=== PATIENT | female | born 1955 | race Two or more races ===

== ENCOUNTER 2023-07-26 14:28 | Inpatient (IN) | payer OTHER ==
[~2023-07-26] VITALS: Ht 157.5 cm; Wt 100.7 kg
[2023-07-26 15:29] LABS: Alanine Aminotransferase 262 U/L (7-40); Albumin 4.6 g/dL (3.2-4.8); Alkaline Phosphatase 53 U/L (46-116); Anion Gap 8 (5-15); Aspartate Aminotransferase 260 U/L (13-40); BUN/Creatinine Ratio 19.6 (10.0-20.0); Blood Urea Nitrogen 20 mg/dL (9-23); Calcium 9.4 mg/dL (8.7-10.4); Carbon Dioxide 22 mmol/L (20-30); Chloride 106 mmol/L (98-107); Glucose 112 mg/dL (74-106); Magnesium 2.1 mg/dL (1.6-2.6); Sodium 136 mmol/L (136-145)
[2023-07-26 15:30] LABS: Bilirubin, Total 0.9 mg/dL (0.2-1.0); Total Protein 7.6 g/dL (5.7-8.2)
[2023-07-26 15:40] LABS: INR 1.41 (0.9-1.15); Partial Thromboplastin Time 31.5 SEC (24.5-34.5); Prothrombin Time 14.5 sec (9.3-11.8)
[2023-07-26 16:02] LABS: Urine Bacteria FEW /hpf (None Seen); Urine Blood Negative /uL (Negative); Urine Clarity HAZY (Clear); Urine Color Yellow (Yellow); Urine Hyaline Cast MANY /lpf (0 - 2); Urine Mucus FEW (None Seen); Urine Protein, UAD 1+ (Negative); Urine Specific Gravity 1.018 (1.001-1.035); Urine WBC 49 /hpf (0 - 5)
[2023-07-26 16:50] VITALS: PULSE 123; RESP 22; O2SAT 98
[2023-07-26 16:51] LABS: Basophils # (auto) 0 10 ^3/uL (0-0.2); Basophils % (auto) 0.4 % (0.0-2.0); Eosinophils # (auto) 0.1 10 ^3/uL (0-0.8); Eosinophils % (auto) 0.5 % (0.0-7.0); Hematocrit 43.7 % (36.0-46.0); Hemoglobin 14.3 g/dL (12.2-16.2); Lymphocytes # (auto) 1.6 10 ^3/uL (0.4-5.4); Lymphocytes % (auto) 15.7 % (10.0-50.0); Mean Corpuscular Hemoglobin 30.2 pg (28.0-32.0); Mean Corpuscular Hgb Conc. 32.8 g/dL (32.0-36.0); Mean Corpuscular Volume 91.9 fL (80.0-100.0); Monocytes # (auto) 0.9 10 ^3/uL (0-1.3); Neutrophils # (auto) 7.4 10 ^3/uL (1.6-8.6); Neutrophils % (auto) 74.4 % (37.0-80.0); Nucleated Red Blood Cells % 0.2 %; Red Blood Cells 4.75 10^6/uL (4.0-5.20); Red Cell Distribution Width 18.2 % (11.8-14.3); White Blood Cell 9.9 10^3/uL (4.4-10.8)
[2023-07-26] MEDS: SODIUM CHLORIDE 0.9% 1,000 ML IV ONE (17:50)
[2023-07-26] MEDS: FUROSEMIDE 40 MG/4 ML VIAL IV ONE (19:20)
[2023-07-26 19:30] VITALS: PULSE 121; RESP 22; O2SAT 95
[2023-07-26] MEDS: dilTIAZem 25 MG/5 ML VIAL IV ONE (19:34)
[2023-07-26] MEDS: ALBUTEROL SULF 2.5 MG/0.5ML(0.5%) NEB SOLN NEB ONE (20:02)
[2023-07-26] MEDS: IPRATROPIUM BROM 0.5 MG/2.5ML INH SOL NEB ONE (20:02)
[2023-07-26] MEDS: DexAMETHasone SOD PHOS 10MG/1ML VIAL INJ IV ONE (20:40)
[2023-07-26] MEDS: IOHEXOL 350 MG/ML 100ML IJ ONE ×2 (21:11)
[2023-07-26] MEDS: cefTRIAXone 2GM/50ML D5W 50 ML IV ONE (21:38)
[2023-07-26] MEDS ORDERED: HYDROcodone-ACET 5/325MG TAB PO PRN (22:30)
[2023-07-26] MEDS ORDERED: ACETAMINOPHEN 650 mg PER 20.3 mL UD PO PRN (22:30)
[2023-07-26] MEDS ORDERED: NITROGLYCERIN 0.4 MG SL TAB SL PRN ×2 (22:30)
[2023-07-26] MEDS ORDERED: MORPHINE SULFATE INJ 2 MG/ml SYRG IV PRN ×2 (22:30)
[2023-07-26 23:04] VITALS: BP 116/96; PULSE 117; RESP 20; TEMP 98.2; O2SAT 95
[2023-07-26 23:10] VITALS: O2SAT 96
[2023-07-27] VITALS (8 sets, daily range): PULSE 85–118; RESP 20–24; O2SAT 96–99
[2023-07-27] MEDS: ALBUTEROL SULF 2.5 MG/0.5ML(0.5%) NEB SOLN NEB PRN (00:42)
[2023-07-27] MEDS: IPRATROPIUM BROM 0.5 MG/2.5ML INH SOL NEB PRN (00:43)
[2023-07-27] MEDS ORDERED: DEXTROSE (50%) 50ML SYRG IV PRN (01:15)
[2023-07-27] MEDS: NOREPINEPHRINE 8 MG/250ML KIT 250 ML IV SCH (01:15)
[2023-07-27] MEDS: SODIUM CHLORIDE 0.9% 1,000 ML IV ONE (01:47)
[2023-07-27 05:44] LABS: Basophils # (auto) 0 10 ^3/uL (0-0.2); Basophils % (auto) 0.1 % (0.0-2.0); Eosinophils # (auto) 0 10 ^3/uL (0-0.8); Hematocrit 40.7 % (36.0-46.0); Hemoglobin 13.4 g/dL (12.2-16.2); Lymphocytes # (auto) 0.8 10 ^3/uL (0.4-5.4); Lymphocytes % (auto) 10.8 % (10.0-50.0); Mean Corpuscular Hemoglobin 30.1 pg (28.0-32.0); Mean Corpuscular Hgb Conc. 32.8 g/dL (32.0-36.0); Mean Corpuscular Volume 91.7 fL (80.0-100.0); Monocytes # (auto) 0.2 10 ^3/uL (0-1.3); Neutrophils # (auto) 6.5 10 ^3/uL (1.6-8.6); Neutrophils % (auto) 87.1 % (37.0-80.0); Nucleated Red Blood Cells % 0.1 %; Red Blood Cells 4.44 10^6/uL (4.0-5.20); Red Cell Distribution Width 17.9 % (11.8-14.3); White Blood Cell 7.5 10^3/uL (4.4-10.8)
[2023-07-27 06:06] LABS: Anion Gap 11 (5-15); Carbon Dioxide 20 mmol/L (20-30); Chloride 106 mmol/L (98-107); Potassium 4.4 mmol/L (3.5-5.1); Sodium 137 mmol/L (136-145)
[2023-07-27 06:07] LABS: Calcium 8.4 mg/dL (8.7-10.4)
[2023-07-27 06:12] LABS: BUN/Creatinine Ratio 26.5 (10.0-20.0); Blood Urea Nitrogen 27 mg/dL (9-23); Glucose 147 mg/dL (74-106)
[2023-07-27] MEDS: InsuLIN REG 1unit/0.01ml Soln (100units/ml) SC SCH (07:00)
[2023-07-27] MEDS: ACCU-CHEK COMFORT CURVE STRIP VI SCH (07:25)
[2023-07-27] MEDS: PANTOPRAZOLE 40 MG/10 ML VIAL INJ IV SCH (10:14)
[2023-07-27] MEDS: AMIODARONE HCL 200 MG TAB PO SCH (10:15)
[2023-07-27] MEDS: FUROSEMIDE 20 MG/2 ML VIAL IV SCH ×2 (10:15→13:56)
[2023-07-27] MEDS: APIXABAN 5 MG TAB PO SCH (10:15)
[2023-07-27 13:43] LABS: COVID19 ANTIGEN SOFIA FIA NEGATIVE (NEGATIVE); Rapid Influenza A Negative (Negative); Rapid Influenza B Negative (Negative)
[2023-07-27] MEDS: AMIODARONE BOLUS KIT 100 ML IV ONE (13:43)
[2023-07-27] MEDS: DIGOXIN (250MCG/ML) 2 ML AMPULE IV ONE (13:43)
[2023-07-27] MEDS: AMIODARONE 450mg/250ml AE 250 ML IV SCH ×2 (13:56→20:20)
[2023-07-27] MEDS: methylPREDNISolone SOD SUCC 40 MG/ML VL IV SCH (14:25)
[2023-07-27] MEDS: IPRATROPIUM BROM 0.5 MG/2.5ML INH SOL NEB SCH (15:22)
[2023-07-27] MEDS: LEVALBUTEROL HCL 1.25 MG/3 ML NEB NEB SCH (15:23)
[2023-07-27] MEDS: LEVALBUTEROL HCL 1.25 MG/3 ML NEB ONE (15:23)
[2023-07-27] MEDS: cefTRIAXone 1GM/50ML D5W 50 ML IV SCH (21:33)
[2023-07-28 05:31] LABS: Basophils # (auto) 0 10 ^3/uL (0-0.2); Basophils % (auto) 0.1 % (0.0-2.0); Eosinophils # (auto) 0 10 ^3/uL (0-0.8); Hematocrit 37.8 % (36.0-46.0); Hemoglobin 12.4 g/dL (12.2-16.2); Lymphocytes # (auto) 1.1 10 ^3/uL (0.4-5.4); Lymphocytes % (auto) 8.4 % (10.0-50.0); Mean Corpuscular Hemoglobin 30.2 pg (28.0-32.0); Mean Corpuscular Hgb Conc. 32.8 g/dL (32.0-36.0); Mean Corpuscular Volume 91.9 fL (80.0-100.0); Monocytes # (auto) 0.9 10 ^3/uL (0-1.3); Monocytes % (auto) 7.3 % (0.0-12.0); Neutrophils # (auto) 10.6 10 ^3/uL (1.6-8.6); Neutrophils % (auto) 84.2 % (37.0-80.0); Nucleated Red Blood Cells % 0.2 %; Red Blood Cells 4.11 10^6/uL (4.0-5.20); Red Cell Distribution Width 18.3 % (11.8-14.3); White Blood Cell 12.6 10^3/uL (4.4-10.8)
[2023-07-28 05:46] LABS: Chloride 103 mmol/L (98-107); Potassium 3.8 mmol/L (3.5-5.1); Sodium 133 mmol/L (136-145)
[2023-07-28 05:47] LABS: Anion Gap 10 (5-15); Carbon Dioxide 20 mmol/L (20-30)
[2023-07-28 05:48] LABS: Calcium 9.2 mg/dL (8.7-10.4)
[2023-07-28 05:52] LABS: BUN/Creatinine Ratio 18.4 (10.0-20.0); Blood Urea Nitrogen 19 mg/dL (9-23); Glucose 106 mg/dL (74-106)
[2023-07-28] MEDS: LEVALBUTEROL HCL 1.25 MG/3 ML NEB NEB PRN (06:54)
[2023-07-28 06:55] VITALS: PULSE 121; RESP 22; O2SAT 95
[2023-07-28] MEDS: IPRATROPIUM BROM 0.5 MG/2.5ML INH SOL NEB PRN (06:55)
[2023-07-28 07:01] VITALS: PULSE 121; RESP 20; O2SAT 97
[2023-07-28 07:32] VITALS: PULSE 107; RESP 18; O2SAT 96
[2023-07-28] MEDS: DIGOXIN (250MCG/ML) 2 ML AMPULE IV ONE (13:01)
[2023-07-28] MEDS: MIDODRINE HCL 10 MG TAB PO ONE (19:05)
[2023-07-28 20:43] VITALS: PULSE 102; RESP 21; O2SAT 98
[2023-07-28] MEDS: MONTELUKAST SODIUM 10 MG TAB PO SCH (21:50)
[2023-07-28] MEDS: traZODone HCL 50 MG TAB PO SCH (21:54)
[2023-07-29] VITALS (11 sets, daily range): BP systolic 108; BP diastolic 36–63; PULSE 60–105; RESP 16–22; TEMP 97.1–97.3; O2SAT 96–100
[2023-07-29 05:26] LABS: Basophils # (auto) 0 10 ^3/uL (0-0.2); Basophils % (auto) 0.1 % (0.0-2.0); Eosinophils # (auto) 0 10 ^3/uL (0-0.8); Hematocrit 38.5 % (36.0-46.0); Hemoglobin 12.4 g/dL (12.2-16.2); Lymphocytes # (auto) 1.2 10 ^3/uL (0.4-5.4); Lymphocytes % (auto) 8.9 % (10.0-50.0); Mean Corpuscular Hemoglobin 29.5 pg (28.0-32.0); Mean Corpuscular Hgb Conc. 32.3 g/dL (32.0-36.0); Mean Corpuscular Volume 91.5 fL (80.0-100.0); Monocytes # (auto) 0.7 10 ^3/uL (0-1.3); Monocytes % (auto) 5.3 % (0.0-12.0); Neutrophils # (auto) 11.3 10 ^3/uL (1.6-8.6); Neutrophils % (auto) 85.7 % (37.0-80.0); Nucleated Red Blood Cells % 0.2 %; Red Blood Cells 4.21 10^6/uL (4.0-5.20); Red Cell Distribution Width 18.6 % (11.8-14.3); White Blood Cell 13.1 10^3/uL (4.4-10.8)
[2023-07-29 05:35] LABS: Chloride 106 mmol/L (98-107); Potassium 4.6 mmol/L (3.5-5.1); Sodium 135 mmol/L (136-145)
[2023-07-29 05:36] LABS: Anion Gap 9 (5-15); Calcium 9.4 mg/dL (8.7-10.4); Carbon Dioxide 20 mmol/L (20-30)
[2023-07-29 05:41] LABS: Blood Urea Nitrogen 25 mg/dL (9-23); Glucose 126 mg/dL (74-106)
[2023-07-29 05:47] LABS: Alanine Aminotransferase 199 U/L (7-40); Alkaline Phosphatase 43 U/L (46-116); Anion Gap 11 (5-15); Aspartate Aminotransferase 102 U/L (13-40); BUN/Creatinine Ratio 19.8 (10.0-20.0); Blood Urea Nitrogen 20 mg/dL (9-23); Calcium 9.5 mg/dL (8.7-10.4); Carbon Dioxide 20 mmol/L (20-30); Chloride 105 mmol/L (98-107); Glucose 126 mg/dL (74-106); Lipase 37 U/L (12-53); Potassium 4.5 mmol/L (3.5-5.1); Sodium 136 mmol/L (136-145)
[2023-07-29 05:48] LABS: Bilirubin, Total 0.6 mg/dL (0.2-1.0); Total Protein 6.6 g/dL (5.7-8.2)
[2023-07-29] MEDS: AMIODARONE HCL 200 MG TAB PO ONE (09:44)
[2023-07-29] MEDS: MIDODRINE HCL 10 MG TAB PO SCH (10:35)
[2023-07-29] MEDS: HYALURONIDASE 150 UNIT/1 ML SUBCUT ONE (10:41)
[2023-07-29] MEDS ORDERED: IPRATROPIUM BROM 0.5 MG/2.5ML INH SOL NEB PRN (16:00)
[2023-07-29] MEDS: LEVALBUTEROL HCL 1.25 MG/3 ML NEB NEB PRN (16:27)
[2023-07-29] MEDS ORDERED: IPRATROPIUM BROM 0.5 MG/2.5ML INH SOL NEB SCH (18:00)
[2023-07-29] MEDS ORDERED: LEVALBUTEROL HCL 1.25 MG/3 ML NEB NEB SCH (18:00)
[2023-07-29] MEDS: dilTIAZem 120MG ER CAP PO ONE (18:03)
[2023-07-29] MEDS: DIGOXIN (250MCG/ML) 2 ML AMPULE IV ONE (18:55)
[2023-07-29] MEDS: BUDESONIDE (INHALATION) 0.5 MG/2 ML NEB NEB SCH (19:46)
[2023-07-29] MEDS: LEVALBUTEROL HCL 1.25 MG/3 ML NEB NEB SCH (19:46)
[2023-07-29] MEDS: IPRATROPIUM BROM 0.5 MG/2.5ML INH SOL NEB SCH (19:46)
[2023-07-29] MEDS: methylPREDNISolone SOD SUCC 125 MG/2 ML VL IV SCH (21:00)
[2023-07-29] MEDS: AMIODARONE HCL 200 MG TAB PO SCH (22:48)
[2023-07-30] VITALS (20 sets, daily range): BP systolic 100–130; BP diastolic 51–88; PULSE 58–82; RESP 18–24; TEMP 95.9–98.1; O2SAT 94–100
[2023-07-30] MEDS: ALPRAZolam 0.25 MG TAB PO SCH (05:09)
[2023-07-30 05:57] LABS: Basophils # (auto) 0 10 ^3/uL (0-0.2); Basophils % (auto) 0.1 % (0.0-2.0); Eosinophils # (auto) 0 10 ^3/uL (0-0.8); Hemoglobin 12.4 g/dL (12.2-16.2); Lymphocytes # (auto) 0.7 10 ^3/uL (0.4-5.4); Lymphocytes % (auto) 6.3 % (10.0-50.0); Mean Corpuscular Hemoglobin 30.5 pg (28.0-32.0); Mean Corpuscular Hgb Conc. 33.5 g/dL (32.0-36.0); Mean Corpuscular Volume 90.9 fL (80.0-100.0); Monocytes # (auto) 0.6 10 ^3/uL (0-1.3); Monocytes % (auto) 4.8 % (0.0-12.0); Neutrophils # (auto) 10.4 10 ^3/uL (1.6-8.6); Neutrophils % (auto) 88.8 % (37.0-80.0); Nucleated Red Blood Cells % 0.1 %; Red Blood Cells 4.07 10^6/uL (4.0-5.20); Red Cell Distribution Width 17.9 % (11.8-14.3); White Blood Cell 11.7 10^3/uL (4.4-10.8)
[2023-07-30 06:03] LABS: Chloride 102 mmol/L (98-107); Potassium 4.3 mmol/L (3.5-5.1); Sodium 134 mmol/L (136-145)
[2023-07-30 06:04] LABS: Anion Gap 8 (5-15); Calcium 9.5 mg/dL (8.7-10.4); Carbon Dioxide 24 mmol/L (20-30)
[2023-07-30 06:09] LABS: Blood Urea Nitrogen 23 mg/dL (9-23); Glucose 117 mg/dL (74-106)
[2023-07-30] MEDS ORDERED: CARV6.25 PO (07:00)
[2023-07-30] MEDS ORDERED: AMIO200T33 PO (07:00)
[2023-07-30] MEDS ORDERED: LEVA0.3110 IN (07:00)
[2023-07-30] MEDS ORDERED: LEVA0.3113 IN (07:00)
[2023-07-30] MEDS ORDERED: APIX5TAB PO (07:00)
[2023-07-30] MEDS ORDERED: LISI10TA34 PO (07:00)
[2023-07-30] MEDS ORDERED: DUPI1INJ SC (07:00)
[2023-07-30] MEDS ORDERED: MONT-8 PO (07:00)
[2023-07-30] MEDS ORDERED: AMIT10TA12 PO (07:00)
[2023-07-30] MEDS: dilTIAZem 120MG ER CAP PO SCH (09:11)
[2023-07-30] MEDS: PANTOPRAZOLE 40 MG TAB PO SCH (09:38)
[2023-07-30] MEDS ORDERED: VALA1TAB34 PO (17:41)
[2023-07-30] MEDS ORDERED: FURO20TA3 PO (17:41)
[2023-07-30] MEDS ORDERED: HYDR200T36 PO (17:41)
[2023-07-30] MEDS ORDERED: SACU1TAB PO (17:41)
[2023-07-30] MEDS ORDERED: DILT60TA PO (17:41)
[2023-07-30] MEDS ORDERED: LEVA0.6320 INH (17:42)
[2023-07-31] VITALS (9 sets, daily range): BP systolic 91–109; BP diastolic 54–59; PULSE 61–71; RESP 20; TEMP 96.2–97.8; O2SAT 94–98
[2023-07-31 05:48] LABS: Basophils # (auto) 0 10 ^3/uL (0-0.2); Basophils % (auto) 0.1 % (0.0-2.0); Eosinophils # (auto) 0 10 ^3/uL (0-0.8); Hematocrit 38.8 % (36.0-46.0); Hemoglobin 12.7 g/dL (12.2-16.2); Lymphocytes # (auto) 0.6 10 ^3/uL (0.4-5.4); Lymphocytes % (auto) 5.6 % (10.0-50.0); Mean Corpuscular Hemoglobin 30.2 pg (28.0-32.0); Mean Corpuscular Hgb Conc. 32.9 g/dL (32.0-36.0); Monocytes # (auto) 0.6 10 ^3/uL (0-1.3); Monocytes % (auto) 5.3 % (0.0-12.0); Neutrophils # (auto) 9.3 10 ^3/uL (1.6-8.6); Nucleated Red Blood Cells % 0.1 %; Red Blood Cells 4.21 10^6/uL (4.0-5.20); Red Cell Distribution Width 18.8 % (11.8-14.3); White Blood Cell 10.4 10^3/uL (4.4-10.8)
[2023-07-31 05:58] LABS: Chloride 103 mmol/L (98-107); Potassium 4.6 mmol/L (3.5-5.1); Sodium 137 mmol/L (136-145)
[2023-07-31 05:59] LABS: Anion Gap 9 (5-15); Calcium 9.7 mg/dL (8.7-10.4); Carbon Dioxide 25 mmol/L (20-30)
[2023-07-31 06:04] LABS: BUN/Creatinine Ratio 18.3 (10.0-20.0); Blood Urea Nitrogen 20 mg/dL (9-23); Glucose 141 mg/dL (74-106)
[2023-07-31] MEDS ORDERED: AMOX500T86 PO (10:40)
[2023-07-31] MEDS ORDERED: BUDE0.5S IN (10:40)
[2023-07-31] MEDS ORDERED: IPRA0.00 IN (10:48)
== END 2023-07-31 12:00 | disposition home or self-care (01) | DRG 291 ==
LOC: ER 14:28 → TELE 22:37 → TELE-EAST 23:48 → TELE 23:51 → TELE-WESTW 07-29 15:28
PROVIDERS: ADMIT Nurse Practitioner Family; ATTEND Nurse Practitioner Family
DX: I11.0 Hypertensive heart disease with heart failure (principal); I50.23 Acute on chronic systolic (congestive) heart failure; J96.01 Acute respiratory failure with hypoxia; I48.92 Unspecified atrial flutter; J98.11 Atelectasis; J44.1 Chronic obstructive pulmonary disease with (acute) exacerbation; Z68.41 Body mass index [BMI] 40.0-44.9, adult; N39.0 Urinary tract infection, site not specified; I42.9 Cardiomyopathy, unspecified; I48.0 Paroxysmal atrial fibrillation; Z20.822 Contact with and (suspected) exposure to COVID-19; F41.9 Anxiety disorder, unspecified; R91.1 Solitary pulmonary nodule; I95.9 Hypotension, unspecified; E78.5 Hyperlipidemia, unspecified; I48.91 Unspecified atrial fibrillation; E11.9 Type 2 diabetes mellitus without complications; E66.01 Morbid (severe) obesity due to excess calories; I25.10 Atherosclerotic heart disease of native coronary artery without angina pectoris; Z79.01 Long term (current) use of anticoagulants; Z87.891 Personal history of nicotine dependence
CPT/HCPCS: 36415; 71045; 71275; 76705; 80048; 80053; 80162; 81001; 82962; 83690; 83735; 83880; 84484; 85025; 85379; 85610; 85730; 87086; 87426; 87804; 93005; 93306; 94640; 96365; 96375; 97110; 97163; 97530; C9113; G0378; J1100; J3470

== ENCOUNTER 2024-02-19 06:30 | Day surgery (SDC) | payer OTHER ==
[~2024-02-19] VITALS: Ht 157.5 cm; Wt 86.6 kg
[2024-02-19] VITALS (7 sets, daily range): BP systolic 93–105; BP diastolic 43–55; PULSE 74–83; RESP 12–17; O2SAT 99–100
[~2024-02-19 06:30] MED LIST: AMIT10TA12 PO; APIX5TAB PO; ATOR20TA50 PO; CARV6.2517 PO; CETI-195 PO; DUPI1INJ SC; FLUT1AER11 IN; FURO20TA3 PO; GLUC1CAP12 PO; HYDR-4902 PO; LEVA0.6320 INH; MONT-8 PO; MULT-1018 PO; SACU1TAB PO; [UNRECOGNIZED DRUG - CODE] PO
[2024-02-19] MEDS ORDERED: IODIXANOL 320MG/ML 100ML BTL IV ONE ×2 (07:27→08:11)
[2024-02-19] MEDS ORDERED: HEPARIN IN NS 1000Units/500mL 1,500 ML ONE (07:27)
[2024-02-19] MEDS ORDERED: VERAPAMIL 2.5MG/ML INJ 2ML VIAL IV ONE (09:27)
[2024-02-19] MEDS ORDERED: ANGIOMAX 250 MG VIAL IV ONE (09:27)
[2024-02-19] MEDS ORDERED: HEPARIN SODIUM (PORCINE) 5000 UNITS/ML 1ML VIAL ONE (09:27)
[2024-02-19] MEDS ORDERED: fentaNYL CITRATE 100 MCG/2 ML VL ONE (09:28)
[2024-02-19] MEDS ORDERED: MIDAZOLAM HCL 2MG/2ML 2ml VIAL (1mg/ml) ONE (09:28)
[2024-02-19] MEDS ORDERED: SODIUM CHL 0.9% 0 ML ONE (09:28)
[2024-02-19] MEDS ORDERED: LIDOCAINE 2%HCL (LOCAL ANESTH.) INJ 20ML MDV ONE (09:28)
== END 2024-02-19 12:24 | disposition home or self-care (01) ==
LOC: CATH 06:30
PROVIDERS: ATTEND Internal Medicine
DX: I25.10 Atherosclerotic heart disease of native coronary artery without angina pectoris (principal); I11.0 Hypertensive heart disease with heart failure; I50.9 Heart failure, unspecified; J44.9 Chronic obstructive pulmonary disease, unspecified; Z80.3 Family history of malignant neoplasm of breast
CPT/HCPCS: 93458; C1769; C1887; C1894; J1644; J2250; J3010; J7030; Q9967; 99152